=== PATIENT | male | born 1975 | race Caucasian/White ===

== ENCOUNTER 2016-08-16 17:25 | Emergency (ER) | payer OTHER ==
[2016-08-16 19:07] LABS: HEMOGLOBIN 12.1 gm/dl (14.0-17.5); RED BLOOD COUNT 4.26 M/UL (4.20-5.50); WHITE BLOOD COUNT 11.6 K/UL (4.5-11.0)
[2016-08-16 19:24] LABS: BUN/CREATININE RATIO 9 (0-10)
== END 2016-08-17 03:20 | disposition short-term general hospital (02) ==
LOC: ER1 17:25
PROVIDERS: Physician Assistant
DX: L02.511 Cutaneous abscess of right hand (principal); L03.011 Cellulitis of right finger
CPT/HCPCS: 36415; 73130; 80053; 85025; 86140; 87040; 96374; 99284